=== PATIENT | male | born 2005 | race Two or more races ===

== ENCOUNTER 2024-04-12 18:28 | Emergency (ER) | payer SELFPAY ==
[~2024-04-12] VITALS: Ht 193 cm; Wt 165.6 kg
[2024-04-12 18:44] VITALS: BP 154/94; PULSE 83; RESP 16; O2SAT 97
== END 2024-04-12 22:33 | disposition left against medical advice (07) ==
LOC: ER 18:32
DX: U07.1 COVID-19 (principal); R51.9 Headache, unspecified; Z53.21 Procedure and treatment not carried out due to patient leaving prior to being seen by health care provider